=== PATIENT | male | born 1990 | race Caucasian/White ===

== ENCOUNTER 2016-12-18 16:56 | Emergency (ER) | payer OTHER ==
[~2016-12-18] VITALS: Ht 170.2 cm; Wt 104.5 kg
[2016-12-18 18:44] VITALS: Ht 170.2 cm; Wt 104.5 kg
[2016-12-18] MEDS ORDERED: NAPR-260 PO (19:45)
--- NOTE | 2016-12-18 19:51 | ERD ---
ER Documentation Chief Complaint Date/Time DATE: 12/18/16 TIME: 19:46 Chief Complaint right knee pain x 1 week HPI Patient is a 26-year-old male who presents to the ED with right knee pain 1 week. He has a previous surgery of ACL reconstruction in 2011. He states that he developed pain on his lateral knee 1 week ago. Denies trauma or triggering factor. He states that he is on his feet a lot and walks a lot. He complains of swelling to his right knee. Denies fever or chills. Denies difficulty walking. Denies pain above or below his knee. Denies calf pain. Denies chest pain, cough, shortness of breath or difficulty breathing. Denies headache or dizziness. Denies foot or ankle pain. No recent surgeries, no smoking. Denies leg pain or swelling. ROS All systems reviewed and are negative except as per history of present illness. Medications Home Meds Active Scripts Naproxen* (Naprosyn*) 500 Mg Tablet, 500 MG PO BID Y for PAIN AND/OR INFLAMMATION, #30 TAB Prov:BINU ROSEN PA-C 12/18/16 Allergies Allergies: Coded Allergies: Penicillins (Verified Allergy, Unknown, RASH, 08/28/14) PMhx/Soc Medical and Surgical Hx: pt denies Medical Hx, pt denies Surgical Hx History of Surgery: No Anesthesia Reaction: No Hx Neurological Disorder: No Hx Respiratory Disorders: No Hx Cardiac Disorders: No Hx Psychiatric Problems: No Hx Miscellaneous Medical Probl: No Hx Alcohol Use: Yes (Occasional) Hx Substance Use: Yes (former) Hx Tobacco Use: Yes Smoking Status: Former smoker FmHx Family History: No coronary disease, No diabetes, No other Physical Exam Vitals Vital Signs Date Time Temp Pulse Resp B/P Pulse Ox O2 Delivery O2 Flow Rate FiO2 12/18/16 18:44 98.2 53 20 130/63 100 Physical Exam GENERAL: Well-developed, well-nourished male. Appears in no acute distress. LUNG: Clear to auscultation bilaterally. No rhonchi, wheezing, rales or coarse breath sounds. HEART: Regular rate and rhythm. No murmurs, rubs or gallops. Extremities: Equal pulses bilaterally. No peripheral clubbing, cyanosis or edema. No unilateral leg swelling. ORTHO: tenderness to lateral side of right knee. no swelling, redness or warmth. nontender above and below knee. no calf pain or swelling. negative daniel sign. rom intact with flexion and extension. NEUROLOGIC: Alert and oriented. Moving all four extremities. 5/5 strength in all extremities. Normal speech. Steady gait. SKIN: Normal color. Warm and dry. No rashes or lesions. Capillary refill < 2 seconds Procedures/MDM ER COURSE: I kept the patient and/or family informed of laboratory and diagnostic imaging results throughout the emergency room course. IMAGING STUDIES: [place] [id number] Radiology Main Line: [phone] DIAGNOSTIC IMAGING REPORT Patient: MARINA TOBAR : 1990 Age: 26 Sex: M MR #: [id number] DOS: 12/18/161937 Ordering MD: BINU ROSEN PA-C Location: [facility] Room/Bed: PROCEDURE: Left knee x-ray CLINICAL INDICATION: Right knee pain. Prior ACL repair. TECHNIQUE: AP, lateral and oblique views of the left knee were obtained. COMPARISON: 08/12/2012. FINDINGS: Remote ACL repair with interference screws identified in the distal right femur and proximal right tibia. There is no evident hardware complication. There is a mild joint effusion. No acute fracture or dislocation. Degenerative change and lateral joint compartment with small marginal osteophytes, and osteophytes appear increased over interval. IMPRESSION: 1. No evident hardware complication or acute fracture. 2. Degenerative changes in the lateral joint compartment, which appear increased over the interval. 3. Small joint effusion is nonspecific. RPTAT: [facility] Physician Manish Date Time Electronically viewed and signed by Physician Manish on 12/18/2016 20:07 RS/ CC: BINU ROSEN PA-C PROCEDURES: [Chang wrap Assessment: Neurovascularly intact post chang wrap placement with good fit.] Patient's extremity symptoms have stabilized while they have been evaluated in the department and are appropriate for outpatient follow up. MEDICAL DECISION MAKING: This is a 26-year-old male who presents with right knee pain. Vital signs were reviewed. Patient is afebrile. Patient is not hypoxic. Patient is not toxic or ill-appearing. Patient has knee pain of uncertain etiology. Low suspicion for dislocation, fracture, septic joint, compartment syndrome, osteomyelitis, avascular necrosis, DVT, Achilles tendon rupture, cellulitis. At this time, unable to rule out any tendon and ligament injuries. I explained to patient that he needs an MRI to rule out any ligament or meniscus injury. I have low suspicion for septic joint or bursitis as patient does not have redness, swelling, warmth and is able to move his knee without pain. DISCHARGE: At this time, patient is stable for discharge and outpatient management with no new complaints during the ER course. Patient was sent home with Cassandra and a CD of his report. Patient advised to follow-up with orthopedics for further evaluation.. Patient will be discharged home with instructions to recheck for new or worsening symptoms such as fever, nausea, weakness, LOC and to follow up with primary care in the next 1-2 days. Patient was advised to return to the ER for any new or worsening symptoms. Plan was discussed and patient and/or family understands and agrees. Home instructions were given. Departure Diagnosis: Primary Impression: Knee pain Laterality: right Chronicity: unspecified Qualified Code: M25.561 - Right knee pain, unspecified chronicity Condition: Stable Patient Instructions: Bursitis, Knee Pain, Uncertain Cause Referrals: [facility] Urgent Care 7 a.m.- 11 p.m. Every Day of the Week NO APPOINTMENT OR AUTHORIZATION NEEDED [facility] [place] Hours: Mon-Fri 9:00 AM - 5:00 PM Additional Instructions: Call your primary care doctor TOMORROW for an appointment during the next 1-2 days.See the doctor sooner or return here if your condition worsens before your appointment time. BINU ROSEN PA-C Dec 18, 2016 19:51
--- NOTE | 2016-12-18 20:08 | RADRPT ---
PROCEDURE: Left knee x-ray CLINICAL INDICATION: Right knee pain. Prior ACL repair. TECHNIQUE: AP, lateral and oblique views of the left knee were obtained. COMPARISON: 08/12/2012. FINDINGS: Remote ACL repair with interference screws identified in the distal right femur and proximal right t ibia. There is no evident hardware complication. There is a mild joint effusion. No acute fractur e or dislocation. Degenerative change and lateral joint compartment with small marginal osteophytes, and osteophytes appear increased over interval. IMPRESSION: 1. No evident hardware complication or acute fracture. 2. Degenerative changes in the lateral joint compartment, which appear increased over the interval. 3. Small joint effusion is nonspecific. RPTAT: [facility] Physician Manish Date Time Electronically viewed and signed by Physician Manish on 12/18/2016 20:07 RS/
[2016-12-18 20:38] VITALS: BP 118/70; PULSE 78; RESP 18; TEMP 98.6
== END 2016-12-18 21:01 | disposition home or self-care (01) ==
LOC: FTE 16:56
DX: M25.561 Pain in right knee (principal); Z87.891 Personal history of nicotine dependence
CPT/HCPCS: 73562; Z7502

== ENCOUNTER → 2017-09-28 | Outpatient (CLI) | payer OTHER ==
[~2017-09-28] MED LIST: NAPR-260 PO
--- NOTE | 2017-09-28 15:52 | HKNOTE ---
DATE OF SERVICE: 09/28/2017 CHIEF COMPLAINT: Right knee pain. HISTORY OF PRESENT ILLNESS: This is a 27-year-old male who has had a previous right knee ACL reconstruction performed by Dr. Lukasz Dash several years ago. He is having pain in his right knee. He was playing football approximately 1 month ago when he was tackled and developed pain in the right knee. He denies any locking or catching. He has occasional instability. He does not use any braces. He does not take any pain medications. He has no other complaints. GAIT: Nonantalgic gait, reciprocal gait pattern. PHYSICAL EXAMINATION: RIGHT KNEE EXAM: Healed incision. Tender over the medial and lateral joint lines, 0-130 degrees range of motion. Positive Jason's medially and laterally. Positive Michelle's. Negative anterior drawer, negative posterior drawer. Motor strength 5/5, hamstrings, quadriceps, tibialis anterior, gastrocsoleus. IMAGING: X-rays right knee, previous interference screws are intact. There are no fractures or dislocations. MRI right knee, there is a vertical tear of the posterior horn of the medial and lateral menisci. The cruciate ligament graft appears to be intact. IMPRESSION: A 22-year-old male with previous right knee ACL reconstruction with medial and lateral meniscus tear. PLAN: We will request authorization for referral to Dr. Demetrius Barahona. He will follow up with me as needed. Dictated By: GISEL LI/JOSESITO Conf#: [id number] DID#: [id number] SANDEEP
== END | disposition home or self-care (01) ==
LOC: HKI 14:45
PROVIDERS: ATTEND Orthopaedic Surgery Adult Reconstructive Orthopaedic Surgery
DX: M23.221 Derangement of posterior horn of medial meniscus due to old tear or injury, right knee (principal); M23.251 Derangement of posterior horn of lateral meniscus due to old tear or injury, right knee
CPT/HCPCS: G0463